=== PATIENT | male | born 1940 | race Asian ===

== ENCOUNTER 2017-09-05 19:29 | Inpatient (IN) | payer MEDICARE, MEDICAID ==
[2017-09-05 20:08] LABS: % EOSINOPHILS 2.7 % (0.0-5.0); % LYMPHOCYTES 15.9 % (20.0-50.0); % MONOCYTES 9.8 % (2.0-10.0); % NEUTROPHILS 70.6 % (40.0-80.0); BASOPHILE ABSOLUTE 0.1 Th/cumm (0-0.2); EOSINOPHILE ABSOLUTE 0.2 Th/cmm (0.1-0.4); HEMOGLOBIN 8.5 gm/dL (12-16); MEAN CELL VOLUME 91.6 fl (80-99); MEAN CORPUSCULAR HEMOGLOBIN 33.3 pg (27.0-31.0); MEAN CORPUSCULAR HGB CONC 36.3 pg (28.0-36.0); MEAN PLATELET VOLUME 8.6 fl; MONOCYTE ABSOLUTE 0.6 Th/cmm (0.3-1.0); NEUTROPHILE ABSOLUTE 4.3 Th/cmm (1.8-8.0); PLATELET COUNT 195 Th/cmm (150-400); RED BLOOD COUNT 2.56 Mil/cmm (3.80-5.80); RED CELL DISTRIBUTION WIDTH 14.7 % (11.5-20.0); WHITE BLOOD COUNT 6.2 Th/cmm (4.8-10.8)
[2017-09-05 20:13] LABS: HEMATOCRIT 23.5 % (41.0-60)
--- NOTE | 2017-09-05 20:19 | ED Physician Chart ---
ED Chief Complaint/HPI - Patient Information Date Seen:: 09/05/17 Time Seen:: 19:32 Chief Complaint:: anemia History of Present Illness:: THIS IS A 76 YR OLD CHRONICALLY ILL DNR PATIENT SENT TO THIS ER FOR AN EVALUATION OF HIS ANEMIA. HE HAS A HISTORY OF HTN, ESRD, DM AND CVA WITH RIGHT SIDED WEAKNESS. Allergies:: Allergies Allergy/AdvReac Type Severity Reaction Status Date / Time brimonidine [From Alphagan P] Allergy Verified 09/05/17 19:42 dorzolamide Allergy Verified 09/05/17 19:42 labetalol Allergy Verified 09/05/17 19:42 timolol Allergy Verified 09/05/17 19:42 Vitals:: Vital Signs - 8 hr 09/05/17 19:29 Temp 97.9 F HR 76 RR 18 BP 176/65 O2 Sat % 100 Historian:: EMS, Medical Records Review:: Nurse's Note Reviewed, Transfer documents Reviewed ED Review of Systems - Review of Systems General/Constitutional: No fever, No chills, No weight loss, Weakness, No diaphoresis, No edema, No loss of appetite Skin: No skin lesions, No rash, No bruising Head: No headache, No light-headedness Eyes: No loss of vision, No pain, No diplopia ENT: No earache, No nasal drainage, No sore throat, No tinnitus Neck: No neck pain, No swelling, No thyromegaly, No stiffness, No mass noted Cardio Vascular: No chest pain, No palpitations, No PND, No orthopnea, No edema Pulmonary: No SOB, No cough, No sputum, No wheezing GI: No nausea, No vomiting, No diarrhea, No pain, No melena, No hematochezia, No constipation, No hematemesis G/U: No dysuria, No frequency, No hematuria Musculoskeletal: No bone or joint pain, No back pain, No muscle pain Endocrine: No polyuria, No polydipsia Psychiatric: No prior psych history, No depression, No anxiety, No suicidal ideation Hematopoietic: No bruising, No lymphadenopathy Allergic/Immuno: No urticaria, No angioedema Neurological: No syncope, No focal symptoms, No weakness, No paresthesia, No headache, No seizure, No dizziness, No confusion, No vertigo ED Past Medical History - Past Medical History Obtainable: Yes Past Medical History: HTN, DM, CAD, CVA/TIA, ESRD, Dementia Family History: None Social History: Non Smoker, No Alcohol, No Drug Use, Care Facility Surgical History: None Psychiatricy History: Depression, Dementia Medication: Reviewed Family Medical History - Family Member Mother History Unknown: Yes ED Physical Exam - Physical Examination General/Constitutional: Awake, Well-developed, well-nourished, Alert, No distress, GCS 15, Non-toxic appearing, Ambulatory Other Gen/Cons comments:: LETHARGIC Head: Atraumatic Eyes: Lids, conjuctiva normal, PERRL, EOMI Skin: Nl inspection, No rash, No skin lesions, No ecchymosis, Well hydrated, No lymphadenopathy ENMT: External ears, nose nl, Nasal exam nl, Lips, teeth, gums nl Neck: Nontender, Full ROM w/o pain, No JVD, No nuchal rigidity, No bruit, No mass, No stridor Respiratory: Nl effort/Exclusion, Clear to Auscultation, No Wheeze/Rhonchi/Rales Cardio Vascular: RRR, No murmur, gallop, rubs, NL S1 S2 GI: No tenderness/rebounding/guarding, No organomegaly, No hernia, Normal BS's, Nondistended, No mass/bruits, No McBurney tenderness : No CVA tenderness Extremities: No tenderness or effusion, Full ROM, normal strength in all extremities, No edema, Normal digits & nails Neuro/Psych: Alert/oriented, DTR's symmetric, Normal sensory exam, Normal motor strength, Judgement/insight normal, Mood normal, Normal gait, No focal deficits (RIGHT SIDED WEAKNESS) Misc: Normal back, No paraspinal tenderness ED Labs/Radiology/EKG Results - Radiology Results Results: CHEST X-RAY = CARDIOMEGALY - EKG Interpretations EKG Time:: 20:04 Rate & Rhythm: RATE = 80, SINUS [place]: LEFT AXIS Intervals: NO ECTOPY SEEN. ED Assessment - Assessment General Assessment: ANEMIA ED Septic Shock - . Is Septic Shock (SBP<90, OR Lactate>4 mmol\L) present?: No - <6hrs of presentation: Vital Signs: Vital Signs - 8 hr 09/05/17 19:29 Temp 97.9 F HR 76 RR 18 BP 176/65 O2 Sat % 100 ED Reassessment (Disposition) - Reassessment Reassessment Condition:: Unchanged - Diagnosis Diagnosis:: ANEMIA ESRD - Patient Disposition Discharge/Transfer:: Acute Care w/in this hosp Admitting Medical Physician:: Jayy Correia Condition at Disposition:: Stable ED Discharge Plan - Patient Disposition Admit/Discharge/Transfer: Acute Care w/in this hosp Condition at Disposition: Unchanged
[2017-09-05 20:22] LABS: INR 0.9 (0.5-1.4); PROTHROMBIN TIME (TEST) 9.3 SECONDS (9.5-11.5)
[2017-09-05 20:26] LABS: ALBUMIN 4.4 gm/dL (4.2-5.5); ALKALINE PHOSPHATASE 63 U/L (34-104); BILIRUBIN,TOTAL 0.6 mg/dL (0.3-1.0); BUN - UREA NITROGEN 39 mg/dL (7-25); CHLORIDE 93 mEq/L (98-107); GLUCOSE 185 mg/dL (70-105); POTASSIUM SERUM 4.7 mEq/L (3.5-5.1); SGOT 15 U/L (13-39); SGPT/ALT 15 U/L (7-52); SODIUM SERUM 132 mEq/L (136-145); TOTAL PROTEIN,SERUM 6.6 gm/dL (6.0-8.3)
[2017-09-05 22:50] LABS: ANION GAP 17.1 (7.0-16.0); CARBON DIOXIDE 26.6 mEq/L (21.0-31.0)
[2017-09-05 22:55] LABS: CREATININE - SERUM 5.2 mg/dL (0.7-1.3)
[2017-09-06 01:37] LABS: % BASOPHILS 0.4 % (0.0-2.0); % EOSINOPHILS 3.4 % (0.0-5.0); % LYMPHOCYTES 19.6 % (20.0-50.0); % MONOCYTES 10.1 % (2.0-10.0); % NEUTROPHILS 66.5 % (40.0-80.0); EOSINOPHILE ABSOLUTE 0.2 Th/cmm (0.1-0.4); LYMPHOCYTE ABSOLUTE 1.1 Th/cmm (1.5-3.0); MEAN CELL VOLUME 90.8 fl (80-99); MEAN CORPUSCULAR HEMOGLOBIN 31.3 pg (27.0-31.0); MEAN CORPUSCULAR HGB CONC 34.4 pg (28.0-36.0); MEAN PLATELET VOLUME 8.6 fl; MONOCYTE ABSOLUTE 0.6 Th/cmm (0.3-1.0); NEUTROPHILE ABSOLUTE 3.8 Th/cmm (1.8-8.0); PLATELET COUNT 164 Th/cmm (150-400); RED BLOOD COUNT 2.28 Mil/cmm (3.80-5.80); RED CELL DISTRIBUTION WIDTH 14.7 % (11.5-20.0); WHITE BLOOD COUNT 5.7 Th/cmm (4.8-10.8)
[2017-09-06 01:57] LABS: HEMATOCRIT 20.7 % (41.0-60); HEMOGLOBIN 7.1 gm/dL (12-16)
[2017-09-06 06:55] LABS: % BASOPHILS 0.8 % (0.0-2.0); % EOSINOPHILS 2.9 % (0.0-5.0); % LYMPHOCYTES 19.4 % (20.0-50.0); % MONOCYTES 11.5 % (2.0-10.0); % NEUTROPHILS 65.4 % (40.0-80.0); EOSINOPHILE ABSOLUTE 0.2 Th/cmm (0.1-0.4); HEMATOCRIT 24.8 % (41.0-60); HEMOGLOBIN 8.4 gm/dL (12-16); LYMPHOCYTE ABSOLUTE 1.2 Th/cmm (1.5-3.0); MEAN CELL VOLUME 89.8 fl (80-99); MEAN CORPUSCULAR HEMOGLOBIN 30.4 pg (27.0-31.0); MEAN CORPUSCULAR HGB CONC 33.9 pg (28.0-36.0); MEAN PLATELET VOLUME 8.6 fl; MONOCYTE ABSOLUTE 0.7 Th/cmm (0.3-1.0); NEUTROPHILE ABSOLUTE 3.9 Th/cmm (1.8-8.0); PLATELET COUNT 153 Th/cmm (150-400); RED BLOOD COUNT 2.76 Mil/cmm (3.80-5.80); RED CELL DISTRIBUTION WIDTH 14.8 % (11.5-20.0)
[2017-09-06] MEDS ORDERED: INSULIN HUMAN REGULAR 100 UNITS/ML UNIT SUBQ SCH (07:30)
[2017-09-06 07:37] VITALS: BP 155/65
--- NOTE | 2017-09-06 09:37 | Diagnostic Imaging Report ---
CHEST X-RAY: AP view INDICATION: pain COMPARISON: 08/01/2017 FINDINGS: Increased interstitial lung markings are seen suggestive of chronic lung changes. There is mild elevation of right hemidiaphragm. There is no focal consolidation or pleural effusions . Cardiomegaly is noted with atherosclerosis. The osseous structures demonstrate no acute abnormalities. IMPRESSION: Increased interstitial lung markings suggestive of chronic lung changes. Faint infiltrate of the right midlung is considered less likely but cannot be completely excluded. Please correlate with clinical findings. Cardiomegaly and atherosclerotic vascular disease.
[2017-09-06] MEDS: INSULIN ASPART SLIDING SCALE 100 UNITS/ML UNIT SUBQ SCH ×3 (13:09→20:50)
[2017-09-06] MEDS: NITROGLYCERIN OINT 2% 1 INCH PACKET TP SCH (19:00)
--- NOTE | 2017-09-06 19:04 | History & Physical ---
ADMIT DATE: 09/05/2017 PATIENT IDENTIFICATION: A 76-year-old male. CHIEF COMPLAINT: Sent to Emergency Room for evaluation of increased fatigue and low hemoglobin. HISTORY OF PRESENT ILLNESS: A 76-year-old resident of [facility], has complex medical problems, which include diabetes mellitus, hypertension, hyperlipidemia, coronary artery disease, history of CVA with left-sided weakness, residing here at [facility], noted by dialysis MD that the patient was extremely fatigued, tired, and altered. Based on that, the patient had a CBC done, which revealed hemoglobin of 7.1. The patient was transferred here for blood transfusion and further management. PAST MEDICAL HISTORY: Remarkable for: 1. Diabetes mellitus. 2. Hypertension. 3. Hyperlipidemia. 4. Degenerative joint disease. 5. Anemia of chronic kidney disease. 6. History of cerebrovascular accident with right-sided weakness. 7. Hypothyroidism. 8. Decline in self-care and mobility. MEDICATIONS AT THE TIME OF TRANSFER: The patient is taking multiple medications, which include sliding scale insulin, aspirin, atorvastatin, clonidine, digoxin, Colace, docusate sodium, Procrit, vitamin D 50,000 units, folic acid, levothyroxine, lisinopril, loratadine, nifedipine, nitroglycerin, pantoprazole, Zoloft, and Travatan eyedrops. ALLERGIES: THE PATIENT IS ALLERGIC TO MULTIPLE EYEDROPS, WHICH INCLUDE BRIMONIDINE, DORAZOLAMIDE, TIMOLOL, AND LABETALOL. SOCIAL HISTORY: The patient lives in a [facility]. The patient has no history of smoking cigarette, alcohol, or drug use. FAMILY MEDICAL HISTORY: Remarkable for diabetes and hypertension. REVIEW OF SYSTEMS: The patient is lying comfortably. Denies any chest pain, shortness of breath, palpitation, dizziness, nausea, vomiting, diarrhea. Denies any seizure or syncopal episode. Denies any headache. Denies any cough. Denies any hematuria, hematochezia, or melena. PHYSICAL EXAMINATION: GENERAL: The patient is alert, awake, lying in the bed without any acute distress. VITAL SIGNS: Temperature 98.4, pulse 80, respiratory rate is 18, blood pressure 168/72. HEENT: Normocephalic, atraumatic. Extraocular muscles are intact. Tongue was pink and coated. Poor dentition noted. NECK: Supple, no JVD, no lymphadenopathy, thyromegaly, or carotid bruit. HEART: Both heart sounds are regular. CHEST: Lung equal in expansion, no expiratory wheezing. ABDOMEN: Soft. No guarding or rigidity. Bowel sounds are present. No palpable mass. EXTREMITIES: No edema. AV graft on the left upper extremity noted. NEUROLOGIC: Alert, awake, follows command. Right-sided weakness noted. AVAILABLE DIAGNOSTIC DATA: Performed, has been reviewed. CLINICAL IMPRESSION: 1. Symptomatic anemia, needs blood transfusion. 2. Diabetes. 3. End-stage kidney disease, on hemodialysis. 4. Hypertension. 5. Hyperlipidemia. 6. Coronary artery disease. 7. Hypothyroidism. 8. Degenerative joint disease. 9. Diabetic retinopathy, nephropathy, and neuropathy. PLAN: 1. Admit this patient to Med/Surg floor. 2. Transfuse 2 units of packed red blood cells. 3. Nephrology consultation with hemodialysis. 4. Appropriate home medicine reconciliation. 5. General nursing care. 6. Follow labs. 7. Discharge planning after hemodialysis. JOB# [id number]
[2017-09-06 19:37] LABS: A1C % 5.8 % (4.0-6.0)
[2017-09-06] MEDS ORDERED: Non-Formulary Item 1 EA (Travoprost [Travatan Z] 1 DROP) EACH EYE SCH (21:00)
[2017-09-07] MEDS: NITROGLYCERIN OINT 2% 1 INCH PACKET TP SCH ×4 (03:11→17:23)
--- NOTE | 2017-09-07 08:19 | Consultation ---
Consult Note - Consult Note Service Date: 09/07/17 Consult Note: PHYSICIAN Consultation Note: Date of Admission: 09/05/17 Purpose of Consultation: ESRD History of Present Illness: Patient GALI EGAN was admitted to location Medical/Surgical Unit I with SEVERE ANEMIA. Pt is known to our service with a h/o ESRD 2 DM2 on HD w/ LUE AVF followed by our group at [facility], sent for anemia, hgb of 7.2. Received 1 unit of PRBC prior to examination, due for HD today. On examination, comfortable, denies complaints. Past Medical History: Diagnoses ANEMIA, UNSPECIFIED (09/05/17) HYPOTHYROIDISM, UNSPECIFIED (09/05/17) TYPE 2 DIABETES MELLITUS WITH DIABETIC NEPHROPATHY (09/05/17) TYPE 2 DIABETES MELLITUS W DIABETIC CHRONIC KIDNEY DISEASE (09/05/17) TYPE 2 DIABETES W UNSP DIABETIC RTNOP W/O MACULAR EDEMA (09/05/17) TYPE 2 DIABETES MELLITUS WITH DIABETIC NEUROPATHY, UNSP (09/05/17) TYPE 2 DIABETES MELLITUS WITHOUT COMPLICATIONS (09/05/17) HYPERLIPIDEMIA, UNSPECIFIED (09/05/17) ESSENTIAL (PRIMARY) HYPERTENSION (09/05/17) ATHSCL HEART DISEASE OF [place] CORONARY ARTERY W/O ANG PCTRS (09/05/17) UNSPECIFIED OSTEOARTHRITIS, UNSPECIFIED SITE (09/05/17) END STAGE RENAL DISEASE (09/05/17) WEAKNESS (09/05/17) DO NOT RESUSCITATE (09/05/17) DEPENDENCE ON RENAL DIALYSIS (09/05/17) Allergies Allergy/AdvReac Type Severity Reaction Status Date / Time brimonidine [From Alphagan P] Allergy Verified 09/05/17 19:42 dorzolamide Allergy Verified 09/05/17 19:42 labetalol Allergy Verified 09/05/17 19:42 timolol Allergy Verified 09/05/17 19:42 Vital Signs Temp 96.9 F 09/07/17 07:29 Pulse 74 09/07/17 07:29 Resp 18 09/07/17 07:29 BP 181/65 09/07/17 07:29 Pulse Ox 96 09/07/17 07:29 Intake & Output 09/06/17 09/07/17 09/07/17 18:59 06:59 18:59 Intake Total 350 200 Balance 350 200 Weight (lbs) 50.349 kg 51.256 kg Intake: Oral 350 200 Other: # Voids 3 Stool Characteristics Soft Formed Weight Source Bedscale Estimated Laboratory Results - last 24 hr 09/05/17 09/06/17 09/06/17 19:55 12:27 17:08 POC Glucose 138 H 184 H Hemoglobin A1c % 5.8 Home Medication Medication Instructions Recorded Type Atorvastatin Calcium [Lipitor] 40 mg PO HS 07/22/17 History Digoxin [Digitek*] 125 mcg PO DAILY 07/22/17 History Docusate Sodium [Colace] 200 mg PO DAILY 07/22/17 History Folic Acid/Vit Bcomp,C [Daya-Michelle 1 tab PO DAILY 07/22/17 History Tablet] Loratadine [Claritin] 10 mg PO DAILY PRN 07/22/17 History Sertraline HCl [Zoloft] 100 mg PO DAILY 07/22/17 History Travoprost [Travatan Z] 1 drop EACH EYE HS 07/22/17 History Aspirin [Aspirin Chewable] 81 mg PO DAILY ctb 07/27/17 Rx Epoetin Mika [Epogen*] 5,000 units SUBQ MoWeFr ml 07/27/17 Rx Ergocalciferol [Vitamin D] 50,000 iu PO Mo@0900 sgl 07/27/17 Rx Insulin Aspart Sliding Scale See Protocol SUBQ ACHS unit 07/27/17 Rx [NovoLOG INSULIN SLIDING SCALE] Levothyroxine [Synthroid] 0.2 mg PO DAILY tab 07/27/17 Rx Lisinopril [Zestril] 40 mg PO DAILY tab 07/27/17 Rx Nitroglycerin [Nitro-Bid] 1 inch TP Q6H packet 07/27/17 Rx Pantoprazole [Protonix] 40 mg PO DAILY ect 07/27/17 Rx NIFEdipine [Procardia Xl] 90 mg PO DAILY 09/05/17 History cloNIDine HCl [Catapres] 0.1 mg PO Q12HR 09/05/17 History cloNIDine HCl [Catapres] 0.1 mg PO Q6H PRN 09/05/17 History Current Medications Generic Name Dose Route Start Last Admin Trade Name Freq PRN Reason Stop Dose Admin Aspirin 81 mg 09/07/17 09:00 Aspirin Chewable PO 11/06/17 08:59 DAILY CHUCK Atorvastatin Calcium 40 mg 09/06/17 21:00 09/06/17 20:48 Lipitor PO 11/05/17 20:59 40 mg HS CHUCK Administration Digoxin 0.125 mg 09/07/17 09:00 Lanoxin PO 11/06/17 08:59 DAILY CHUCK Docusate Sodium 200 mg 09/07/17 09:00 Colace PO 11/06/17 08:59 DAILY [facility] Ergocalciferol 50,000 iu 09/07/17 09:00 Vitamin D PO 11/06/17 08:59 Mo@0900 CHUCK Albumin Human 25 gm in 100 mls @ 50 mls/hr 09/08/17 00:00 Albuminar 25% IV 09/08/17 23:59 PRN PRN BP Support During HD Sodium Chloride 500 mls @ 0 mls/hr 09/08/17 00:00 Nacl 0.9% IV 09/08/17 23:59 .Q0M PRN BP Support During Hemodialysis Wide Open Insulin Aspart 0 units 09/06/17 08:27 09/06/17 20:50 Novolog Insulin Sliding Scale SUBQ 11/05/17 07:29 Not Given ACHS [facility] Protocol Latanoprost 1 drop 09/07/17 21:00 Xalatan 0.005% Ophth Soln EACH EYE 11/06/17 20:59 HS CHUCK Levothyroxine Sodium 0.2 mg 09/07/17 09:00 Synthroid PO 11/06/17 08:59 DAILY CHUCK Lisinopril 40 mg 09/07/17 09:00 Zestril PO 11/06/17 08:59 DAILY [facility] Loratadine 10 mg 09/06/17 17:27 Claritin PO 11/05/17 17:26 DAILY PRN Allergy Symptoms Nifedipine 90 mg 09/07/17 09:00 Procardia Xl PO 11/06/17 08:59 DAILY [facility] Nitroglycerin 1 inch 09/06/17 17:30 09/07/17 05:44 Nitro-Bid TP 11/05/17 17:29 1 inch Q6H CHUCK Administration Pantoprazole Sodium 40 mg 09/07/17 09:00 Protonix PO 11/06/17 08:59 DAILY [facility]UCK Sertraline HCl 100 mg 09/07/17 09:00 Zoloft PO 11/06/17 08:59 DAILY [facility] Vitamin B Complex/Vit C/Folic Acid 1 tab 09/07/17 09:00 Vitamin B Complex W/Vitamin C PO 11/06/17 08:59 DAILY CHUCK Review of Systems: A 12 point ROS was reviewed with the pertinent positive and negatives noted in the HPI. Social History Smoking Status Unknown if ever smoked Family Medical History Family Medical History Start: 09/06/17 01: 18 Freq: ONCE Status: Active Protocol: Document 09/06/17 01:18 [email or web address] (Rec: 09/06/17 04:07 MISSY [id number]) Family Medical History Mother History Unknown Yes Physical Exam: General: WDWN man, NAD, A&O x 3, pleasant Cardio: regular rate, nl rhythm, no m/r/g Respiratory: clear bilaterally Abdominal: active bowel sounds, nd, nt Extremities: no edema Assessment: 1. ESRD on HD, due today on MWF schedule. BP controlled on HD 2. Anemia of ESRD s/p transfusion, still below goal - max GEORGE as per [facility] 3. DM2 w/ renal manifestations: insulin, accuchecks per primary team, no reported episodes of hypoglycemia Plan: HD today No contraindication to d/c after HD today back to SNF Signed, Abdirashid Jimenez [id number]
[2017-09-07] MEDS: INSULIN ASPART SLIDING SCALE 100 UNITS/ML UNIT SUBQ SCH ×4 (08:45→20:09)
[2017-09-07] MEDS ORDERED: Pantoprazole 40 mg EC Tab PO SCH (09:00)
[2017-09-07] MEDS ORDERED: Levothyroxine 0.1 Mg Tab PO SCH (09:00)
[2017-09-07] MEDS ORDERED: Aspirin 81mg Chewable Tab PO SCH (09:00)
[2017-09-07] MEDS ORDERED: NIFEdipine 30 mg ER Tab PO SCH (09:00)
[2017-09-07] MEDS ORDERED: Vitamin B Complex w/Vitamin C Tab PO SCH (09:00)
--- NOTE | 2017-09-07 16:58 | Discharge Summary ---
DATE OF DISCHARGE: 09/07/2017 DATE OF DISCHARGE: 09/07/2017. PRINCIPAL DIAGNOSES: 1. Symptomatic anemia, required blood transfusion. 2. Diabetes. 3. Hypertension. 4. Hyperlipidemia. 5. End-stage kidney disease, on hemodialysis. 6. Cerebrovascular accident with right-sided weakness. BRIEF STATEMENT FOR THE REASON FOR ADMISSION: A 76-year-old male transferred from custodial to acute care facility for blood transfusion after the patient was noted to have increasing lethargy and generalized weakness. Please refer to my H and P for further information. HOSPITAL COURSE: The patient was admitted to [facility] floor. The patient was given blood transfusion. Nephrology consult requested. Hemodialysis was initiated. The patient remained stable, so decision is made that the patient can be discharged to custodial. The patient is discharged in stable condition. At the time of discharge, all of his meds were reconciled. [facility]# [id number]
--- NOTE | 2017-09-07 23:04 | Progress Notes ---
DATE: 09/07/2017 PATIENT'S IDENTIFICATION: A 76-year-old male. SUBJECTIVE: The patient seen and examined. The patient is lying in the bed. The patient denies any complaint. OBJECTIVE: On exam, VITAL SIGNS: See nurse's note. HEENT: Poor dentition. NECK: Supple. No JVD. HEART: Regular. No murmur. CHEST AND LUNG: Equal in expansion, no wheezing, no crackles. ABDOMEN: Soft. EXTREMITIES: No edema. AV graft in left upper extremity noted. CLINICAL IMPRESSION: 1. Symptomatic anemia, status post blood transfusion. 2. Diabetes. 3. Hypertension. 4. Hyperlipidemia. 5. Degenerative joint disease. 6. Cerebrovascular accident with left-sided weakness. PLAN: 1. Discharge this patient back to intermediate. 2. Continue other medicine as prescribed. JOB# [id number]
[2017-09-08] MEDS ORDERED: Sodium Chloride 0.9% 500 ML IV PRN
[2017-09-08] MEDS ORDERED: Albumin 25% 25gm/100mL 25 GM/100 ML BTL IV PRN
== END 2017-09-07 20:20 | DRG 682 ==
LOC: ER 19:29 → MSI 23:50
PROVIDERS: ADMIT Internal Medicine; ATTEND Internal Medicine
PROC: 30233N1 Transfusion of Nonautologous Red Blood Cells into Peripheral Vein, Percutaneous Approach (ICD-10-PCS; principal; 2017-09-06)
PROC: 5A1D70Z Performance of Urinary Filtration, Intermittent, Less than 6 Hours Per Day (ICD-10-PCS; 2017-09-07)
DX: I12.0 Hypertensive chronic kidney disease with stage 5 chronic kidney disease or end stage renal disease (principal); N18.6 End stage renal disease; I69.351 Hemiplegia and hemiparesis following cerebral infarction affecting right dominant side; I25.10 Atherosclerotic heart disease of native coronary artery without angina pectoris; E11.22 Type 2 diabetes mellitus with diabetic chronic kidney disease; E78.5 Hyperlipidemia, unspecified; E11.40 Type 2 diabetes mellitus with diabetic neuropathy, unspecified; E11.319 Type 2 diabetes mellitus with unspecified diabetic retinopathy without macular edema; E11.21 Type 2 diabetes mellitus with diabetic nephropathy; D63.1 Anemia in chronic kidney disease; M19.90 Unspecified osteoarthritis, unspecified site; F03.90 Unspecified dementia, unspecified severity, without behavioral disturbance, psychotic disturbance, mood disturbance, and anxiety; E03.9 Hypothyroidism, unspecified; Z99.2 Dependence on renal dialysis; Z66 Do not resuscitate
CPT/HCPCS: 36415-UA; 71045-TC; 80053-TC; 82948-90; 83036-90; 84484-TC; 85025-TC; 85610-TC; 86850-TC; 86900-TC; 86901-TC; 86922-TC; 90937; 93005; J1815; J7030; J7040; P9016; Z7610

== ENCOUNTER 2017-11-14 18:02 | Emergency (ER) | payer MEDICARE, MEDICAID ==
--- NOTE | 2017-11-14 18:33 | ED Physician Chart ---
ED Chief Complaint/HPI - Patient Information Date Seen:: 11/14/17 Time Seen:: 18:08 Chief Complaint:: ACCESS SITE SWOLLEN History of Present Illness:: THIS IS A 76 YO MALE SENT FROM A [facility] FOR AN EVALUATION OF HIS ACCESS SITE FOR DIALYSIS. HE HAS HAD SOME MILD FEVER WITH SWELLING OF THE ACCESS SITE. HE HAS A HISTORY DIABETES, DEPRESSION, HYPERTENSION,DEMENTIA, CHF AND GLAUCOMA. Allergies:: Allergies Allergy/AdvReac Type Severity Reaction Status Date / Time brimonidine [From Alphagan P] Allergy Verified 09/05/17 19:42 dorzolamide Allergy Verified 09/05/17 19:42 labetalol Allergy Verified 09/05/17 19:42 timolol Allergy Verified 09/05/17 19:42 Vitals:: Vital Signs - 8 hr 11/14/17 18:07 Temp 99.4 F HR 75 RR 16 BP 189/71 O2 Sat % 99 Historian:: Patient, Medical Records Review:: Nurse's Note Reviewed, Old Chart Reviewed, Transfer documents Reviewed ED Review of Systems - Review of Systems General/Constitutional: Fever, No chills, No weight loss, Weakness, No diaphoresis, Edema, No loss of appetite, Other (THIS PATIENT IS NOT VERBAL) Skin: No skin lesions, No rash, No bruising Head: No headache, No light-headedness Eyes: No loss of vision, No pain, No diplopia ENT: No earache, No nasal drainage, No sore throat, No tinnitus Neck: No neck pain, No swelling, No thyromegaly, No stiffness, No mass noted Cardio Vascular: No chest pain, No palpitations, No PND, No orthopnea, No edema Pulmonary: No SOB, No cough, No sputum, No wheezing GI: No nausea, No vomiting, No diarrhea, No pain, No melena, No hematochezia, No constipation, No hematemesis G/U: No dysuria, No frequency, No hematuria Musculoskeletal: No bone or joint pain, No back pain, No muscle pain Endocrine: No polyuria, No polydipsia Psychiatric: No prior psych history, No depression, No anxiety, No suicidal ideation Hematopoietic: No bruising, No lymphadenopathy Allergic/Immuno: No urticaria, No angioedema Neurological: No syncope, No focal symptoms, No weakness, No paresthesia, No headache, No seizure, No dizziness, No confusion, No vertigo ED Past Medical History - Past Medical History Obtainable: Yes Past Medical History: HTN, DM, CAD, CHF, CVA/TIA, Dyslipidemia, ESRD, Dementia Family History: None Social History: Non Smoker, No Alcohol, No Drug Use, Care Facility Surgical History: other (ACCES LINE) Psychiatricy History: Dementia Medication: Reviewed Family Medical History - Family Member Mother History Unknown: Yes ED Physical Exam - Physical Examination General/Constitutional: Awake, Well-developed, well-nourished, Alert, No distress, GCS 15, Non-toxic appearing, Ambulatory Head: Atraumatic Eyes: Lids, conjuctiva normal, PERRL, EOMI Skin: Nl inspection, No rash, No skin lesions, No ecchymosis, Well hydrated, No lymphadenopathy ENMT: External ears, nose nl, Nasal exam nl, Lips, teeth, gums nl Neck: Nontender, Full ROM w/o pain, No JVD, No nuchal rigidity, No bruit, No mass, No stridor Respiratory: Nl effort/Exclusion, Clear to Auscultation, No Wheeze/Rhonchi/Rales Cardio Vascular: RRR, No murmur, gallop, rubs, NL S1 S2 GI: No tenderness/rebounding/guarding, No organomegaly, No hernia, Normal BS's, Nondistended, No mass/bruits, No McBurney tenderness : No CVA tenderness Extremities: No tenderness or effusion, Full ROM, normal strength in all extremities, No edema, Normal digits & nails Other Extremities comments:: THE RIGHT UPPER ARM IS ENLARGED WITH MULTIPLE AREAS OF SCAR TISSUE AROUND THE ACCESS SITE, HOWEVER THERE IS A GOOD THRILL ON PALPATION. THERE IS NO WARMNESS, OR REDNESS OR TENDERNESS APPRECIATED. Neuro/Psych: Alert/oriented, DTR's symmetric, Normal sensory exam, Normal motor strength, Judgement/insight normal, Mood normal, Normal gait, No focal deficits Misc: Normal back, No paraspinal tenderness ED Labs/Radiology/EKG Results - Lab Results Results: Abnormal Lab Results 11/14/17 11/14/17 11/14/17 18:40 18:40 18:40 WBC 6.5 RBC 3.52 L Hgb 11.2 L Hct 32.7 L MCV 93.0 MCH 31.7 H MCHC Differential 34.1 RDW 16.6 Plt Count 247 MPV 8.5 Neutrophils % 70.4 Lymphocytes % 15.2 L Monocytes % 11.8 H Eosinophils % 1.7 Basophils % 0.9 PT 9.9 INR 0.95 PTT (Actin FS) 28.3 Sodium 132 L Potassium 4.3 Chloride 93 L Carbon Dioxide 29.0 Anion Gap 14.3 BUN 27 H Creatinine 4.7 H* Est GFR ( Amer) TNP Est GFR (Non-Af Amer) TNP BUN/Creatinine Ratio 5.7 Glucose 172 H Calcium 8.4 L Total Bilirubin 0.3 AST 12 L ALT 10 Alkaline Phosphatase 66 Troponin I Total Protein 6.2 Albumin 3.7 L Globulin 2.5 Albumin/Globulin Ratio 1.5 11/14/17 18:40 WBC RBC Hgb Hct MCV MCH MCHC Differential RDW Plt Count MPV Neutrophils % Lymphocytes % Monocytes % Eosinophils % Basophils % PT INR PTT (Actin FS) Sodium Potassium Chloride Carbon Dioxide Anion Gap BUN Creatinine Est GFR ( Amer) Est GFR (Non-Af Amer) BUN/Creatinine Ratio Glucose Calcium Total Bilirubin AST ALT Alkaline Phosphatase Troponin I 0.07 H* D Total Protein Albumin Globulin Albumin/Globulin Ratio - Radiology Results Results: CHEST X-RAY = NAD - EKG Interpretations EKG Time:: 19:07 Rate & Rhythm: RATE= 73, SINUS [place]: RIGHT ED Assessment - Assessment General Assessment: ACCESS SITE ENLARGEMENT ED Septic Shock - . Is Septic Shock (SBP<90, OR Lactate>4 mmol\L) present?: No - <6hrs of presentation: Vital Signs: Vital Signs - 8 hr 11/14/17 18:07 Temp 99.4 F HR 75 RR 16 BP 189/71 O2 Sat % 99 ED Reassessment (Disposition) - Reassessment Reassessment Condition:: Unchanged - Diagnosis Diagnosis:: ESRD DIABETES MELLITUS STATUS POST CVA - Aftercare/Follow up Instructions Aftercare/Follow-Up Instructions:: Counseled pt regarding lab results/diagnosis & need follow up, Refer to Discharge Instructions, Counseled pt & family regarding lab results/diagnosis & need follow up - Patient Disposition Discharge/Transfer:: [facility] - SNF Condition at Disposition:: Unchanged
[2017-11-14 18:57] LABS: % BASOPHILS 0.9 % (0.0-2.0); % EOSINOPHILS 1.7 % (0.0-5.0); % LYMPHOCYTES 15.2 % (20.0-50.0); % MONOCYTES 11.8 % (2.0-10.0); % NEUTROPHILS 70.4 % (40.0-80.0); BASOPHILE ABSOLUTE 0.1 Th/cumm (0-0.2); EOSINOPHILE ABSOLUTE 0.1 Th/cmm (0.1-0.4); HEMATOCRIT 32.7 % (41.0-60); HEMOGLOBIN 11.2 gm/dL (12-16); MEAN CORPUSCULAR HEMOGLOBIN 31.7 pg (27.0-31.0); MEAN CORPUSCULAR HGB CONC 34.1 pg (28.0-36.0); MEAN PLATELET VOLUME 8.5 fl; MONOCYTE ABSOLUTE 0.8 Th/cmm (0.3-1.0); NEUTROPHILE ABSOLUTE 4.5 Th/cmm (1.8-8.0); PLATELET COUNT 247 Th/cmm (150-400); RED BLOOD COUNT 3.52 Mil/cmm (3.80-5.80); RED CELL DISTRIBUTION WIDTH 16.6 % (11.5-20.0); WHITE BLOOD COUNT 6.5 Th/cmm (4.8-10.8)
[2017-11-14 19:13] LABS: ALB/GLOB RATIO 1.5 (1.0-1.8); ALBUMIN 3.7 gm/dL (4.2-5.5); ALKALINE PHOSPHATASE 66 U/L (34-104); ANION GAP 14.3 (7.0-16.0); BILIRUBIN,TOTAL 0.3 mg/dL (0.3-1.0); BUN - UREA NITROGEN 27 mg/dL (7-25); CALCIUM SERUM 8.4 mg/dL (8.6-10.3); CHLORIDE 93 mEq/L (98-107); GLUCOSE 172 mg/dL (70-105); POTASSIUM SERUM 4.3 mEq/L (3.5-5.1); SGOT 12 U/L (13-39); SGPT/ALT 10 U/L (7-52); SODIUM SERUM 132 mEq/L (136-145); TOTAL PROTEIN,SERUM 6.2 gm/dL (6.0-8.3)
[2017-11-14 19:24] LABS: CREATININE - SERUM 4.7 mg/dL (0.7-1.3); INR 0.95 (0.5-1.4); PROTHROMBIN TIME (TEST) 9.9 SECONDS (9.5-11.5)
--- NOTE | 2017-11-15 09:21 | Diagnostic Imaging Report ---
Portable chest x-ray Time: 1905 History: Chest pain Allowing for portable technique the heart size is normal. No focal pulmonary parenchymal processes. No hilar or mediastinal abnormalities. Impression: No acute abnormalities.
== END 2017-11-14 20:10 | disposition home or self-care (01) ==
LOC: ER 18:02
DX: I13.2 Hypertensive heart and chronic kidney disease with heart failure and with stage 5 chronic kidney disease, or end stage renal disease (principal); E11.22 Type 2 diabetes mellitus with diabetic chronic kidney disease; N18.6 End stage renal disease; I50.9 Heart failure, unspecified; E78.5 Hyperlipidemia, unspecified; M79.89 Other specified soft tissue disorders; Z86.73 Personal history of transient ischemic attack (TIA), and cerebral infarction without residual deficits; Z98.890 Other specified postprocedural states; Z88.8 Allergy status to other drugs, medicaments and biological substances
CPT/HCPCS: 36415-UA; 71045-TC; 80053-TC; 84484-TC; 85025-TC; 85610-TC; 85730-TC; 93005; Z7610